=== PATIENT | female | born 1985 | race American Indian/Alaskan Native ===

== ENCOUNTER 2019-10-07 16:32 | Emergency (ER) | payer BC ==
[2019-10-07 16:49] VITALS: BP 155/92
--- NOTE | 2019-10-07 16:56 | Event Note ---
ED Screening Note Date of service: 10/07/19 Time: 16:49 ED Screening Note: 34 y o female presents to Ed at 6 weeks gestation cc of vaginal bleeding that has worsened since friday LMP: 08/22/19 ob: My obgyn This initial assessment/diagnostic orders/clinical plan/treatment(s) is/are subject to change based on patients health status, clinical progression and re- assessment by fellow clinical providers in the ED. Further treatment and workup at subsequent clinical providers discretion. Patient/guardian urged not to elope from the ED as their condition may be serious if not clinically assessed and managed. Initial orders include: labs us acc eval
[2019-10-07 17:17] LABS: Basophils # (Auto) 0.1 K/mm3 (0.0-0.1); Basophils % (Auto) 0.9 % (0.0-1.8); Eosinophils # (Auto) 0.1 K/mm3 (0.0-0.4); Eosinophils % (Auto) 1.2 % (0.0-4.3); Hematocrit 38.8 % (30.3-42.9); Lymphocytes # (Auto) 2.2 K/mm3 (1.2-5.4); Lymphocytes % (Auto) 34.2 % (13.4-35.0); Mean Corpuscular HGB Conc 34 % (30-34); Mean Corpuscular Volume 87 fl (79-97); Monocytes # (Auto) 0.5 K/mm3 (0.0-0.8); Platelet Count 248 K/mm3 (140-440); Red Blood Count 4.47 M/mm3 (3.65-5.03); Red Cell Distribution Width 13.6 % (13.2-15.2)
[2019-10-07 17:23] LABS: Bilirubin,Urine NEG (Negative); Blood,Urine LG (Negative); Color,Urine Yellow (Yellow); Mucus,Urine FEW /HPF; Protein,Urine <15 mg/dL mg/dL (Negative); Urobilinogen,Urine < 2.0 mg/dL (<2.0)
[2019-10-07 17:26] LABS: RBC,Urine > 182.0 /HPF (0.0-6.0)
--- NOTE | 2019-10-07 17:37 | Emergency Department Report ---
ED Abdominal Pain HPI - General Chief Complaint: Vaginal Bleeding Stated Complaint: 6 WKS /BLEEDING/PAIN Time Seen by Provider: 10/07/19 17:36 Source: patient Mode of arrival: Ambulatory Limitations: No Limitations - History of Present Illness Initial Comments: Patient is a 34-year-old -[place] female comes to the ER concerned because she is having vaginal bleeding that has increased. Patient denies any vaginal discharge. She denies dysuria. No back pain. No fever or chills. 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 US FRIDAY NORMAL at [facility]'s office. 6W 4 D patient states per OB EDC MAY 28-Per patient AB3 MIS1 - Related Data Previous Rx's Medication Instructions Recorded Last Taken Type Nitrofurantoin [place]/M-Cryst 100 mg PO Q12HR #10 capsule 10/07/19 Unknown Rx [Macrobid CAP] Allergies Allergy/AdvReac Type Severity Reaction Status Date / Time No Known Allergies Allergy Unverified 10/07/19 16:33 ED Review of Systems ROS: Stated complaint: 6 WKS /BLEEDING/PAIN Other details as noted in HPI Comment: All other systems reviewed and negative ED Past Medical Hx - Past Medical History Previous Medical History?: No - Surgical History Past Surgical History?: No - Family History Family history: no significant - Social History Smoking Status: Never Smoker Substance Use Type: Alcohol - Medications Home Medications: Home Medications Medication Instructions Recorded Confirmed Last Taken Type Nitrofurantoin [place]/M-Cryst 100 mg PO Q12HR #10 capsule 10/07/19 Unknown Rx [Macrobid CAP] ED Physical Exam - General Limitations: No Limitations General appearance: alert, in no apparent distress - Head Head exam: Present: atraumatic, normocephalic - Eye Eye exam: Present: normal appearance - ENT ENT exam: Present: mucous membranes moist - Neck Neck exam: Present: normal inspection - Respiratory Respiratory exam: Present: normal lung sounds bilaterally. Absent: respiratory distress - Cardiovascular Cardiovascular Exam: Present: regular rate, normal rhythm. Absent: systolic murmur, diastolic murmur, rubs, gallop - GI/Abdominal GI/Abdominal exam: Present: soft, normal bowel sounds - Extremities Exam Extremities exam: Present: normal inspection - Back Exam Back exam: Present: normal inspection - Neurological Exam Neurological exam: Present: alert, oriented X3 - Psychiatric Psychiatric exam: Present: normal affect, normal mood - Skin Skin exam: Present: warm, dry, intact, normal color. Absent: rash ED Course Vital Signs 10/07/19 16:38 Temperature 98.4 F Pulse Rate 78 Respiratory 18 Rate Blood Pressure 155/92 O2 Sat by Pulse 100 Oximetry ED Medical Decision Making - Lab Data Result diagrams: 10/07/19 17:01 10/07/19 17:01 - Radiology Data Radiology results: report reviewed, image reviewed - Medical Decision Making Labs 10/07/19 10/07/19 10/07/19 17:01 17:01 17:01 WBC 6.6 RBC 4.47 Hgb 13.0 Hct 38.8 MCV 87 MCH 29 MCHC 34 RDW 13.6 Plt Count 248 Lymph % (Auto) 34.2 [place] % (Auto) 8.0 H Eos % (Auto) 1.2 Baso % (Auto) 0.9 Lymph # 2.2 [place] # 0.5 Eos # 0.1 Baso # 0.1 Seg Neutrophils % 55.7 Seg Neutrophils # 3.7 Sodium Potassium Chloride Carbon Dioxide Anion Gap BUN Creatinine Estimated GFR BUN/Creatinine Ratio Glucose Calcium HCG, Quant 3118 H Urine Color Urine Turbidity Urine pH Ur Specific [place] Urine Protein Urine Glucose (UA) Urine Ketones Urine Blood Urine Nitrite Urine Bilirubin Urine Urobilinogen Ur Leukocyte Esterase Urine WBC (Auto) Urine RBC (Auto) U Epithel Cells (Auto) Urine Mucus Blood Type O POSITIVE 10/07/19 10/07/19 17:01 Unknown WBC RBC Hgb Hct MCV MCH MCHC RDW Plt Count Lymph % (Auto) [place] % (Auto) Eos % (Auto) Baso % (Auto) Lymph # [place] # Eos # Baso # Seg Neutrophils % Seg Neutrophils # Sodium 139 Potassium 3.4 L Chloride 101.9 Carbon Dioxide 24 Anion Gap 17 BUN 7 Creatinine 0.7 Estimated GFR > 60 BUN/Creatinine Ratio 10 Glucose 98 Calcium 8.9 HCG, Quant Urine Color Yellow Urine Turbidity Clear Urine pH 6.0 Ur Specific [place] 1.013 Urine Protein <15 mg/dl Urine Glucose (UA) Neg Urine Ketones Neg Urine Blood Lg Urine Nitrite Neg Urine Bilirubin Neg Urine Urobilinogen < 2.0 Ur Leukocyte Esterase Neg Urine WBC (Auto) 29.0 H Urine RBC (Auto) > 182.0 U Epithel Cells (Auto) 3.0 Urine Mucus Few Blood Type Vital Signs 10/07/19 16:38 Temperature 98.4 F Pulse Rate 78 Respiratory 18 Rate Blood Pressure 155/92 O2 Sat by Pulse 100 Oximetry Labs noted. Ultrasound noted. UA noted. No dysuria. No CVA tenderness. No fever or chills. No vaginal discharge. Rh+. Patient educated on the need for serial examination. She is being discharged to home on pelvic rest with [facility] follow-up in 48 hours. - Differential Diagnosis Rule out miscarriage/ectopic. Critical care attestation.: If time is entered above; I have spent that time in minutes in the direct care of this critically ill patient, excluding procedure time. ED Disposition Clinical Impression: Threatened , UTI (urinary tract infection) Disposition: - TO HOME OR SELFCARE Is pt being admited?: No Does the pt Need Aspirin: No Condition: Stable Instructions: Threatened Miscarriage (ED) Additional Instructions: CALL OB IN AM AND LET THEM KNOW WHAT HAPPENED TODAY THEY CAN PULL ULTRASOUND IMAGES FROM SYSTEM HCG LEVEL IS 3118 PELVIC REST TYLENOL FOR PAIN MED ORDERED FOR UTI Prescriptions: Nitrofurantoin [place]/M-Cryst [Macrobid CAP] 100 mg PO Q12HR #10 capsule Time of Disposition: 18:04
[2019-10-07 17:46] LABS: BUN/Creatinine Ratio 10; Blood Urea Nitrogen 7 mg/dL (7-17); Calcium 8.9 mg/dL (8.4-10.2); Hemolysis Index 10
--- NOTE | 2019-10-07 18:40 | Ultrasound Report ---
ULTRASOUND OBSTETRIC Indication: VAG BLEEDING Findings: There is a single, living intrauterine . The gestational sac is small. [place]-rump length = 0.8 cm = 6 weeks, 5 day(s). heart rate is 121 beats per minute. The ovaries are normal. There is no free fluid. Impression: Single, living intrauterine with estimated sonographic age of 6 weeks, 5 day(s). Small gest ational sac recommend follow-up ultrasound Signer Name: Carmine Verdin MD Signed: 10/07/2019 6:36 PM Workstation Name: [email or web address]
--- NOTE | 2019-10-07 18:41 | Ultrasound Report ---
ULTRASOUND OBSTETRIC Indication: VAG BLEEDING Transvaginal imaging was performed Findings: There is a single, living intrauterine . The gestational sac is small. [place]-rump length = 0.8 cm = 6 weeks, 5 day(s). heart rate is 121 beats per minute. The ovaries are normal. There is no free fluid. Impression: Single, living intrauterine with estimated sonographic age of 6 weeks, 5 day(s). Small gest ational sac recommend follow-up ultrasound Signer Name: Carmine Verdin MD Signed: 10/07/2019 6:37 PM Workstation Name: [id number]
== END 2019-10-07 18:43 | disposition home or self-care (01) ==
LOC: ED 16:32
DX: O23.41 Unspecified infection of urinary tract in pregnancy, first trimester (principal); O20.0 Threatened abortion; Z3A.01 Less than 8 weeks gestation of pregnancy
CPT/HCPCS: 36415; 76801; 76817; 76830; 80048; 81001; 84702; 85025; 86900; 86901; 87086; 96372; 99284